=== PATIENT | male | born 1980 | race Caucasian/White ===

== ENCOUNTER 2022-06-02 23:47 | Inpatient (IN) | payer BC ==
[2022-06-03 00:24] VITALS: BMI 24.1
[2022-06-03] MEDS ORDERED: ONDANSETRON *ODT* 4 MG TABLET SL PRN (01:43)
[2022-06-03] MEDS ORDERED: IBUPROFEN 400 MG TABLET (FP) PO PRN (01:43)
[2022-06-03] MEDS ORDERED: BISMUTH SUBSALICYLATE 524 MG/30 ML PO PRN (01:43)
[2022-06-03] MEDS ORDERED: MAG HYDROX/AL HYDROX/SIMETH 30 ML UNIT-DOSE CUP PO PRN (01:43)
[2022-06-03] MEDS ORDERED: DICYCLOMINE HCL 10 MG CAPSULE PO PRN (01:43)
[2022-06-03] MEDS ORDERED: POLYETHYLENE GLYCOL (HEALTHYLAX) 3350 17 GM PACKET PO PRN (01:43)
[2022-06-03] MEDS ORDERED: NALOXONE HCL (KLOXXADO) 8 MG SPRAY NS PRN (01:43)
[2022-06-03] MEDS ORDERED: MAGNESIUM HYDROX 2400MG/30ML ORAL SUSPENSION 30 ML CUP PO PRN (01:43)
[2022-06-03] MEDS ORDERED: NICOTINE 10 MG CARTRIDGE (INHALER) IH PRN (01:43)
[2022-06-03] MEDS ORDERED: ACETAMINOPHEN 325 MG TABLET (FP) PO PRN ×2 (01:43)
[2022-06-03] MEDS ORDERED: BENZOCAINE/MENTHOL (CHLORASEPTIC ) LOZENGE MM PRN (01:43)
[2022-06-03] MEDS ORDERED: IBUPROFEN 600 MG TABLET (FP) PO PRN (01:43)
[2022-06-03] MEDS: chlordiazePOXIDE HCL 25 MG CAPSULE PO PRN ×3 (02:35→20:07)
[2022-06-03] MEDS: LOPERAMIDE HCL 2 MG CAPSULE PO PRN ×3 (02:38→17:09)
[2022-06-03] MEDS: chlordiazePOXIDE HCL 25 MG CAPSULE PO SCH ×4 (05:36→22:07)
[2022-06-03] MEDS: METHOCARBAMOL 500 MG TABLET PO PRN ×3 (05:36→22:07)
[2022-06-03] MEDS ORDERED: NICOTINE 14 MG/24 HOURS TOPICAL PATCH TD SCH (10:00)
[2022-06-03] MEDS: PRENATAL VITAMINS W/ FOLIC ACID TABLET (FP) PO SCH (10:18)
[2022-06-03] MEDS ORDERED: chlordiazePOXIDE HCL 25 MG CAPSULE PO ONE (14:00)
[2022-06-03] MEDS ORDERED: cloNIDine HCL 0.1 MG TABLET PO ONE (18:29)
[2022-06-03] MEDS: THIAMINE HCL 100 MG TABLET (FP) PO SCH (22:06)
[2022-06-03] MEDS: MELATONIN 5 MG TABLETS PO SCH (22:07)
[2022-06-04] MEDS: chlordiazePOXIDE HCL 25 MG CAPSULE PO SCH ×4 (05:44→22:18)
[2022-06-04] MEDS: METHOCARBAMOL 500 MG TABLET PO PRN ×2 (05:45→12:53)
[2022-06-04] MEDS: METOPROLOL TARTRATE 25 MG TABLET (FP) PO SCH ×2 (10:22→22:19)
[2022-06-04] MEDS: PRENATAL VITAMINS W/ FOLIC ACID TABLET (FP) PO SCH (10:22)
[2022-06-04 12:08] LABS: HEMATOCRIT 42.4 % (35.4-49); HEMOGLOBIN 14.2 GM/dL (11.7-16.9); MCH 30.3 pg (25.7-33.7); MCHC 33.4 g/dl (32.0-35.9); MEAN CELL VOLUME 90.9 fl (80-96); MEAN PLT VOLUME 8.2 fl (7.5-11.1); PLATELET COUNT 135 10^3/uL (134-434); RBC 4.67 M/mm3 (4.00-5.60); RDW 15.2 % (11.9-15.9); WHITE BLOOD COUNT 3.8 K/mm3 (4.0-10.0)
[2022-06-04 12:17] LABS: ALBUMIN 3.6 g/dl (3.4-5.0); BLOOD UREA NITROGEN 9.1 mg/dL (7-18); CALCIUM 8.5 mg/dL (8.5-10.1)
[2022-06-04 12:20] LABS: CREATININE 0.8 mg/dL (0.55-1.3)
[2022-06-04 12:22] LABS: TOT PROT 6.6 g/dl (6.4-8.2)
[2022-06-04] MEDS: MELATONIN 5 MG TABLETS PO SCH (22:18)
[2022-06-04] MEDS: FAMOTIDINE 20 MG TABLET PO SCH (22:18)
[2022-06-04] MEDS: THIAMINE HCL 100 MG TABLET (FP) PO SCH (22:18)
[2022-06-05] MEDS ORDERED: chlordiazePOXIDE HCL 10 MG CAPSULE PO PRN
[2022-06-05] MEDS ORDERED: chlordiazePOXIDE HCL 10 MG CAPSULE PO SCH (05:00)
[2022-06-05 06:24] VITALS: TEMP 97.6
[2022-06-05 09:28] VITALS: BP 134/94; PULSE 134; RESP 20
[2022-06-05] MEDS: METOPROLOL TARTRATE 25 MG TABLET (FP) PO SCH (09:38)
[2022-06-05] MEDS: FAMOTIDINE 20 MG TABLET PO SCH (09:39)
[2022-06-05] MEDS: PRENATAL VITAMINS W/ FOLIC ACID TABLET (FP) PO SCH (09:39)
[2022-06-06] MEDS ORDERED: chlordiazePOXIDE HCL 10 MG CAPSULE PO SCH (05:00)
[2022-06-07] MEDS ORDERED: chlordiazePOXIDE HCL 10 MG CAPSULE PO ONE (05:00)
== END 2022-06-05 09:08 | disposition left against medical advice (07) | DRG 770 ==
LOC: YASAS 23:47 → Y6N 06-03 01:49
PROVIDERS: ADMIT Allergy & Immunology; ATTEND Allergy & Immunology
PROC: HZ2ZZZZ Detoxification Services for Substance Abuse Treatment (ICD-10-PCS; principal; 2022-06-03)
DX: F10.230 Alcohol dependence with withdrawal, uncomplicated (principal); F41.9 Anxiety disorder, unspecified; E87.6 Hypokalemia; K29.20 Alcoholic gastritis without bleeding; K40.90 Unilateral inguinal hernia, without obstruction or gangrene, not specified as recurrent; R03.0 Elevated blood-pressure reading, without diagnosis of hypertension; Z87.891 Personal history of nicotine dependence
CPT/HCPCS: 36415; 80053; 85027; 86780; 93005; 93010; C9803-CS; Q0162; U0003; U0005